=== PATIENT | female | born 1975 | race Caucasian/White ===

== ENCOUNTER 2020-11-28 14:05 | Inpatient (IN) | payer BC ==
[~2020-11-28] VITALS: Ht 177.8 cm; Wt 91.8 kg
[2020-11-28 14:14] VITALS: BP 117/66
[2020-11-28] MEDS ORDERED: PROPRANOLOL 1010 MG PO (14:20)
[2020-11-28] MEDS ORDERED: PROTONIX40 M2 PO (14:21)
[2020-11-28] MEDS ORDERED: LASIX 40 MG TAB40 MG PO (14:21)
[2020-11-28] MEDS ORDERED: K-DUR 20 MEQ T20 MEQ PO (14:22)
[2020-11-28 14:30] LABS: BE -0.2 mmol/L (-2 to +3); PCO2 29.2 mmHg (35.0-45.0); pH 7.499 (7.340-7.450)
[2020-11-28 14:42] LABS: HEMATOCRIT 31.5 % (37.0-47.0); HEMOGLOBIN 10.3 gm/dL (12.0-15.0); MCHC 32.6 g/dL (28.0-37.0); MCV 73.8 fL (80.0-100.0); MPV 8.4 fl. (7.2-11.1); NUCLEATED RBCS 0 /100WBC; PLATELET COUNT* 139 thou/uL (150-400); RBC 4.27 mil/uL (4.20-5.00); RDW-CV 17.4 % (10.5-14.5); WBC 4.2 thou/uL (4.0-11.0)
[2020-11-28 14:49] LABS: PO2 57.8 mmHg (75.0-100.0)
[2020-11-28 14:54] LABS: CALCIUM 8.6 mg/dL (8.5-10.1); CREATININE 0.9 mg/dL (0.6-1.3); POTASSIUM 3.6 mmol/L (3.5-5.1)
[2020-11-28 14:57] LABS: INR 1.1; PROTIME 11.3 Seconds (9.20-11.50)
[2020-11-28 15:04] LABS: ALBUMIN 2.8 g/dL (3.4-5.0); MAGNESIUM 1.8 mg/dL (1.8-2.4); TOTAL BILIRUBIN 0.5 mg/dL (<0.1-1.0); TOTAL PROTEIN 7.2 g/dL (6.4-8.2)
[2020-11-28 15:20] LABS: ABSOLUTE LYMPHOCYTES 0.2 thou/uL (0.8-5.3); ABSOLUTE MONOCYTES 0.4 thou/uL (0.0-1.2); ABSOLUTE NEUTROPHILS 3.7 thou/uL (1.6-8.1); PLATELET ESTIMATE ADEQUATE
--- NOTE | 2020-11-28 15:39 | NUR ---
CANDI CESAR TRIED TO DO EKG PER ER ORDER AND DR DAVISON STATES TO GET OUT OF ROOM NOT RIGHT NOW. UNABLE TO DO EKG ORDER. DR HOWELL WAS NOTIFIED. NO NEW ORDERS RIGHT NOW. WILL ATTEMPT TO DO EKG AT A LATER TIME. SITUATION HAPPENED AT 1440
--- NOTE | 2020-11-28 16:06 | NUR ---
ATTEMPTED 2 IV STARTS BUT UNSUCCESSFUL, PT TOLERATED WELL
[2020-11-28 21:30] VITALS: BP 111/70
[2020-11-28 23:34] VITALS: BP 122/63
[2020-11-29] VITALS (23 sets, daily range): BP systolic 98–133; BP diastolic 58–82
--- NOTE | 2020-11-29 11:48 | NUR ---
cm lft for yinka gonzaleshael, . also tried pt phone number (in case was cell phone on pt's posession). per care team, pt is on bipap, at max setting. mid line placed. receiving covid therapies.
--- NOTE | 2020-11-29 14:24 | EKG ---
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 : 1975 Requested By: Bertrand Coles Order Number: [id number] MD: Wilbur Blanco Measurements Intervals [place] Rate: 105 P: 50 UT: 117 QRS: 35 QRSD: 91 T: 269 QT: 282 QTc: 373 Interpretive Statements Sinus tachycardia Abnormal R-wave progression, early transition Nonspecific T abnormalities, diffuse leads ischemia must be considered No previous ECG available for comparison Electronically Signed On 11-29-2020 14:24:09 CDT by Wilbur Blanco [email or web address] <ELECTRONICALLY SIGNED> By: Wilbur Blanco MD, [facility] 11/29/20 1424 1454 1454 Wilbur Blanco MD, [facility] /EPI
--- NOTE | 2020-11-29 18:37 | NUR ---
Pt remained stable this shift. This am Dr Smith rounded and wanted to put pt on HHFNC to see if she could tolerate it. RT placed it on and pt sat's would not maintain any higher than 86. Pt placed back on bipap. Pt educated on drinking fluids and taking pills while on the bipap by RN and RT. Pt understanding and following directions appropriately. Pt up ad isaiah to bsc as long as bipap is on. Good output and input this shift. Pt is on menses. No other complaints at this time. Will continue to monitor.
[2020-11-30] VITALS (17 sets, daily range): BP systolic 77–121; BP diastolic 43–84
[2020-11-30 03:56] LABS: HEMATOCRIT 31.8 % (37.0-47.0); HEMOGLOBIN 10.4 gm/dL (12.0-15.0); MCH 24.1 pg (26.0-34.0); MCHC 32.8 g/dL (28.0-37.0); MCV 73.4 fL (80.0-100.0); MPV 9.2 fl. (7.2-11.1); RBC 4.33 mil/uL (4.20-5.00); RDW-CV 17.2 % (10.5-14.5); WBC 6.5 thou/uL (4.0-11.0)
[2020-11-30 04:08] LABS: CALCIUM 8.6 mg/dL (8.5-10.1); CREATININE 0.8 mg/dL (0.6-1.3); POTASSIUM 4.3 mmol/L (3.5-5.1)
--- NOTE | 2020-11-30 12:02 | NUR ---
ICU rounds: Pt keeps taking off bipap, desatting. ?intubation. Covid positive.
--- NOTE | 2020-11-30 14:19 | NUR ---
Pt has been struggling to keep mask on today. Pt was educated about the need to keep it on by Dr. Forrest, RT and this RN. Pt does not want to lay on side, and she complains about dry mouth and keeps breaking the seal of mask to swab mouth with moisturizer. Pt up in chair at this time, bipap on, O2 sats range from 86-90. Will continue to closely monitor.
[2020-11-30 17:40] LABS: CALCIUM 8.4 mg/dL (8.5-10.1); CREATININE 0.8 mg/dL (0.6-1.3); MAGNESIUM 2.5 mg/dL (1.8-2.4)
--- NOTE | 2020-11-30 19:35 | CON ---
[address] [address] CONSULTATION Name: ADILSON BRITO Room: [address] IN M.R.#: [id number] Admission: 11/28/20 Attend Phys: Galina Smith MD Discharge: Date of : 75 Report #: [id number] THIS REPORT FOR: cc: FAM - No family physician/PCP FAM - No family physician/PCP Chacorta Loredo MD ~ DOC #: [id number] Chacorta Loredo MD DATE OF CONSULTATION: 11/30/2020 CONSULT REQUESTED BY: Dr. Forrest. REASON FOR CONSULTATION: Acute hypoxemic respiratory failure secondary to COVID-19. HISTORY OF PRESENT ILLNESS: This is a 45-year-old female with past medical history as mentioned below. She does have obesity, body mass index is 34. She currently vapes tobacco. It is not fully clear as to whether she smoked in the past. The patient is reported to have been diagnosed with COVID-19 two weeks ago, presented with increasing shortness of breath, cough and generalized fatigue. The patient was requiring a nonrebreather mask to maintain O2 saturation of 93% on arrival. The patient since then has been on and off on heated high-flow nasal cannula as well as BiPAP, currently is on a BiPAP of 14/8. When she is wearing the BiPAP and is not anxious, we have O2 saturations in the high 90s. The patient at times is getting agitated and taken off the BiPAP and desaturating though. The patient is maintaining normal blood pressure and heart rate. The patient was unable to provide a further history of review of systems. PAST MEDICAL HISTORY: Obesity, body mass index is 34. Fluid overload, etiology not known at this time, on Lasix senior living SOCIAL HISTORY: Vapes tobacco. Unknown whether she smoked in the past. No known history of heavy alcohol use or illegal drug use. FAMILY HISTORY: Mother had WPW. ALLERGIES: SHE HAS HAD AN ADVERSE REACTION OR ALLERGY TO METHYLPHENIDATE. MEDICATIONS: List in [facility] reviewed. PHYSICAL EXAMINATION: GENERAL: She is fully awake, unable to provide any meaningful history. She was resting comfortably on BiPAP, but is quickly agitated [place] [address] CONSULTATION Name: ADILSON BRITO Slime Room: [address] IN [facility]#: [id number] Admission: 11/28/20 Attend Phys: Galina Smith MD Discharge: Date of : 75 Report #: [id number] with her. VITAL SIGNS: Pulse of 85, blood pressure of 128/89, tidal volumes around 600-700 with current BiPAP settings with 100% FiO2, BiPAP at 14/8, saturating in the high 90s, the respiratory rate was in the low 20s. Body mass index 34. HEENT: Normocephalic and atraumatic. Pupils are equal and reactive, appears to have a narrow airway. Moist mucous membranes. NECK: Does not show raised JVP asymmetry, mass or lymph nodes. CHEST: Symmetrical expansion on inspection and palpation. On auscultation, breath sounds are bilaterally equal, but decreased. I do not hear any added sounds. HEART: Regular. There is no murmur. ABDOMEN: Soft and nontender. EXTREMITIES: Lower extremities show trace edema. No calf tenderness. SKIN: Dry and intact. NEUROLOGIC: Moves all extremities bilaterally equally and spontaneously with no focal deficit identified. LABORATORY DATA: The patient's chest x-ray performed 2 days ago shows extensive bilateral infiltrates consistent with ARDS secondary to COVID-19. The patient's lab work is in [facility] and this is reviewed. Initial arterial blood gas is consistent with acute type 1 respiratory failure. COVID-19 antigen was negative. PCR is positive. ASSESSMENT AND PLAN: 1. Acute hypoxemic respiratory failure. At this time, I decided to watch her on BiPAP and she is awake and calm, and is able to take off the BiPAP and maintain O2 saturation on heated high-flow nasal cannula. We will place her on a heated high-flow while awake. If her anxiety persists, then I would go ahead and start her on a Precedex infusion. She may require endotracheal intubation if she worsens. However, I decided to watch closely and hold off on endotracheal intubation for now. 2. COVID-19. She is on dexamethasone, we will continue. She vapes tobacco. May have a component of bronchospasm as well. I did not, for now, increased the schedule dose of dexamethasone, but I will go ahead and give her 10 mg additional now. She received Actemra yesterday. She also is on remdesivir and she received 1 unit of convalescent plasma. I do not feel strongly either way regarding giving her or holding off on the second unit of convalescent plasma. I did not order for now, but will watch this very closely. 3. Fluid overload. We will go ahead and give her Lasix. I ordered repeat labs for 5:00 p.m. today. 4. Evaluation for thromboembolic phenomena. We will also check a D-dimer. If elevated, we will investigate further. 5. Suspected obstructive sleep apnea, on BiPAP as above. 6. Possibility of COPD/bronchospasm. In addition to Decadron as above, also is [address] [place] [address] CONSULTATION Name: DARYLADILSON Palencia Room: [address] IN ..#: [id number] Admission: 11/28/20 Attend Phys: Galina Smith MD Discharge: Date of : 75 Report #: [id number] on DuoNebs. We will continue the same. 7. Deep venous thrombosis prophylaxis, on Lovenox. 8. Clostridium difficile prophylaxis. If she is able to, then we will give her a probiotic orally. 9. The patient is critically ill at this time. Total time spent providing critical care to this patient today exceeds 43 minutes. Chacorta Loredo MD AP/EDITH <ELECTRONICALLY SIGNED> By: Chacorta Loredo MD 11/30/20 1935 1110 1223Ajohn Loredo MD /nt
--- NOTE | 2020-11-30 19:38 | NUR ---
PT SEDATED AND INTUBATED THIS SHIFT. VITALS VERY STABLE. CENTRAL LINE AND ART LINE BEING PLACED AT THIS TIME. REPORT GIVEN TO SHEA.
[2020-11-30 21:28] LABS: BE 4.1 mmol/L (-2 to +3); PCO2 44.5 mmHg (35.0-45.0)
[2020-12-01] VITALS (47 sets, daily range): BP systolic 85–1219; BP diastolic 47–82
[2020-12-01 05:38] LABS: ABSOLUTE LYMPHOCYTES 0.1 thou/uL (0.8-5.3); ABSOLUTE MONOCYTES 0.3 thou/uL (0.0-1.2); ABSOLUTE NEUTROPHILS 6.4 thou/uL (1.6-8.1); BASOPHILS 0.1 %; LYMPHOCYTES 1.5 %; MCHC 32.4 g/dL (28.0-37.0); MONOCYTES 4.4 %; NUCLEATED RBCS 0 /100WBC; PLATELET COUNT* 131 thou/uL (150-400); RBC 4.19 mil/uL (4.20-5.00); RDW-CV 17.8 % (10.5-14.5); WBC 6.8 thou/uL (4.0-11.0)
[2020-12-01 05:46] LABS: ALBUMIN 2.7 g/dL (3.4-5.0); CALCIUM 8.6 mg/dL (8.5-10.1); CREATININE 0.8 mg/dL (0.6-1.3); MAGNESIUM 2.4 mg/dL (1.8-2.4); POTASSIUM 4.3 mmol/L (3.5-5.1); TOTAL BILIRUBIN 0.5 mg/dL (<0.1-1.0); TOTAL PROTEIN 6.7 g/dL (6.4-8.2)
[2020-12-01 05:47] LABS: PHOSPHORUS* 4.9 mg/dL (2.5-4.9)
--- NOTE | 2020-12-01 06:52 | NUR ---
ASSUMED PATIENT CARE AT 1900. ASSESSMENTS COMPLETED CHARTED. CARDIAC MONITORING IN PLACE FOR PATIENT SAFETY. ARTERIAL LINE AND CENTRAL LINE PLACED PER DR. DOYLE ORDERS, SEE ORDERS IN ELECTRONIC CHART FOR DETAILS. PER DR. DOYLE CENTRAL LINE WAS NOT USED OVER NIGHT, AWAITING FURTHER VERIFICATION OF PLACEMENT. PATIENT SEDATION TITRATED TO MAINTAIN MAP OF 65 AND GREATER, SEE CHARTING FOR DETAILS. LEVOPHED DRIP STARTED PER DR. DOYLE'S ORDERS TO MAINTAIN MAP OF 65 OR GREATER. HOURLY ROUNDING IN PLACE FOR PATIENT SAFETY. FALL PRECAUTIONS IN PLACE FOR PATIENT SAFETY. BED LOCKED AND IN LOWEST POSITION.
[2020-12-01 09:15] LABS: BE 1.5 mmol/L (-2 to +3); PCO2 37.2 mmHg (35.0-45.0); pH 7.451 (7.340-7.450)
[2020-12-01 09:16] LABS: PO2 57.5 mmHg (75.0-100.0)
--- NOTE | 2020-12-01 09:32 | NUR ---
ASSESSMENT: CM S/W PT'S MOTHER, AGNIESZKA. PT LIVES WITH EX-, THEY MOVED IN TOGETHER D/T COVID, "TO COMBINED RESOURCES...AND IT'S BETTER FOR THE CHILDREN." PT IS NORMALLY ACTIVE, EMPLOYEED, DRIVES A VEHICLE AND INDEPENDENT W/CARES. PT HAS 0 DMES. PT HAS NO HX WITH SNF/HH. PER CARE TEAM: PT INTUBATED YEST, "THERE ARE NO PLANS TO EXTUBATE OVER THE WEEKEND"/BEDSIDE RN. PT RECIEVED PLASMA LAST NIGHT AND CONT ON COVID THERAPIES.
[2020-12-01 11:12] LABS: PCO2 VENOUS 50.2 mmHg (41.0-51.0); PO2 VENOUS 78.8 mmHg (35.0-45.0)
[2020-12-01 11:37] LABS: BE 3.7 mmol/L (-2 to +3); PCO2 43.6 mmHg (35.0-45.0); PO2 65.3 mmHg (75.0-100.0); pH 7.432 (7.340-7.450)
--- NOTE | 2020-12-01 15:14 | NUR ---
RIGHT BASILIC VESSEL ACCESSED FOR 5 GERMAN TRIPLE PICC. LINE PRE-TRIMMED TO 41CM AND ADVANCED TO THE ZERO CORI WITH NO RESISTANCE MET. UPPER ARM CIRCUMFERENCE ABOVE INSERTION SITE= 14". SHERLOCK MAGNET AND 3CG CONFIRMATION OF TIP TERMINATION AT THE CAVOATRIAL JUNCTION APPRECIATED. GUIDEWIRE REMOVED, LINE FLUSHED AND INERTION SITE DRESSED. REPORT GIVEN TO ARNOLD KNIGHT.
--- NOTE | 2020-12-01 16:21 | 2DMMODE ---
[place] [address] 2 D/M-MODE ECHOCARDIOGRAM Name: ADILSON BRITO Room: [address] IN .R.#: [id number] Admission: 11/28/20 Attend Phys: Galina Smith MD Discharge: Date of : 75 Date of Service: 12/01/20 1620 Report #: [id number] THIS REPORT FOR: cc: FAM - No family physician/PCP FAM - No family physician/PCP Wilbur Blanco MD [facility] ~ APPROVED REPORT Study performed: 12/01/2020 13:54:21 EXAM: Comprehensive 2D, Doppler, and color-flow Echocardiogram BSA: 2.25 HR: 80 bpm BP: 112/59 mmHg Other Information Study Quality: Technically Difficult Technically limited study due to patient on ventilator, inability to position patient. Indications Dyspnea 2D Dimensions IVSd: 12.81 (7-11mm) LVDd: 34.48 mm PWd: 10.76 (7-11mm) LVDs: 24.67 (25-40mm) Aortic Root: 21.88 mm Aortic Valve AoV Peak Marcello.: 1.14 m/s AO Peak Gr.: 5.21 mmHg LVOT Max P.63 mmHg AO Mean Gr.: 2.15 mmHg LVOT Mean P.34 mmHg LVOT Max V: 0.81 m/s AO V2 VTI: 17.00 cm LVOT Mean V: 0.53 m/s LVOT V1 VTI: 21.28 cm Mitral Valve E/A Ratio: 1.11 MV Decel. Time: 451.68 ms MV E Max Marcello.: 0.44 m/s MV PHT: 130.99 [place] [address] 2 D/M-MODE ECHOCARDIOGRAM Name: ADILSON BRITO Room: [address]#: [id number] Admission: 11/28/20 Attend Phys: Galina Smith MD Discharge: Date of : 75 Date of Service: 12/01/20 1620 Report #: [id number] MVA (PHT): 1.68 cm2 TDI E/Lateral E': 8.80 E/Medial E': 6.29 Medial E' Marcello.: 0.07 m/s Lateral E' Marcello.: 0.05 m/s Tricuspid Valve RAP Estimate: 10.00 mmHg TR Peak Gr.: 36.75 mmHg RVSP: 46.75 mmHg PA Pressure: 46.75 mmHg Left Ventricle The left ventricle is normal size. There is normal LV segmental wall motion. There is normal left ventricular wall thickness. Left ventricular systolic function is normal. The left ventricular ejection fraction is within the normal range. LVEF is 60-65%. Grade I - abnormal relaxation pattern. Right Ventricle The right ventricle is normal size. The right ventricular systolic function is normal. Atria The left atrium size is normal. The right atrium size is normal. Aortic Valve Aortic valve is not well visualized. No aortic regurgitation is present. There is no aortic valvular stenosis. Mitral Valve The mitral valve is normal in structure. There is no mitral valve regurgitation noted. No evidence of mitral valve stenosis. Tricuspid Valve The tricuspid valve is normal in structure. Trace tricuspid regurgitation. Pulmonic Valve Pulmonic valve is not well visualized. There is no pulmonic valvular regurgitation. Great Vessels The aortic root is normal in size. IVC is normal in size and collapses >50% [place] [address] 2 D/M-MODE ECHOCARDIOGRAM Name: ADILSON BRITO Room: [address] IN [facility]#: [id number] Admission: 11/28/20 Attend Phys: Galina Smith MD Discharge: Date of : 75 Date of Service: 12/01/20 1620 Report #: [id number] Pericardium There is no pericardial effusion. <Conclusion> The left ventricle is normal size. Left ventricular systolic function is normal. The left ventricular ejection fraction is within the normal range. LVEF is 60-65%. Grade I - abnormal relaxation pattern. The right ventricle is normal size. The left atrium size is normal. The right atrium size is normal. Aortic valve is not well visualized. The mitral valve is normal in structure. The tricuspid valve is normal in structure. IVC is normal in size and collapses >50% with inspiration. There is no pericardial effusion. There is normal LV segmental wall motion. <ELECTRONICALLY SIGNED> By: Wilbur Blanco MD, FACC 12/01/20 162 162 19 Wilbur Blanco MD, FACC /INF
--- NOTE | 2020-12-01 17:43 | NUR ---
vent settings changed throughout the day. the PEEP is now at 10, down from 15. however, the pts FiO2 requirements have increased as the PEEP has decreased. currently on FiO2 of 85%. the pt arouses easily, however, she desats quickly when awake. sats are 92% when sedated and mid to low 70s when awake. pts CVC, left IJ was removed d/t inability to confirm placement. general sx removed the line and held pressure [id number]. PICC/DANCE HALL HOSTESSPedro, placed a PICC line per Dr. Loredo order. RUE PICC, triple lumen. placement confirmed with CXR. pt has difficulty tolerating turns, she will desat with rotation. pt seems to do better when lying on her right side. all other VSS, levo gtt has been on hold since approx. 0900 today.
[2020-12-01 21:00] LABS: BE 5.2 mmol/L (-2 to +3); PO2 80.9 mmHg (75.0-100.0); pH 7.471 (7.340-7.450)
[2020-12-02] VITALS (42 sets, daily range): BP systolic 73–173; BP diastolic 40–94
[2020-12-02 05:45] LABS: ABSOLUTE BASOPHILS 0.1 thou/uL (0.0-0.2); ABSOLUTE LYMPHOCYTES 0.1 thou/uL (0.8-5.3); ABSOLUTE MONOCYTES 0.5 thou/uL (0.0-1.2); ABSOLUTE NEUTROPHILS 9.6 thou/uL (1.6-8.1); BASOPHILS 0.6 %; HEMATOCRIT 29.8 % (37.0-47.0); HEMOGLOBIN 9.6 gm/dL (12.0-15.0); LYMPHOCYTES 1.2 %; MCH 24.1 pg (26.0-34.0); MCHC 32.4 g/dL (28.0-37.0); MCV 74.6 fL (80.0-100.0); MONOCYTES 4.5 %; MPV 8.4 fl. (7.2-11.1); NUCLEATED RBCS 0 /100WBC; PLATELET COUNT* 142 thou/uL (150-400); POLYS 93.7 %; RBC 3.99 mil/uL (4.20-5.00); RDW-CV 17.1 % (10.5-14.5); WBC 10.2 thou/uL (4.0-11.0)
[2020-12-02 05:57] LABS: ALBUMIN 2.8 g/dL (3.4-5.0); CALCIUM 8.5 mg/dL (8.5-10.1); MAGNESIUM 2.7 mg/dL (1.8-2.4); POTASSIUM 4.4 mmol/L (3.5-5.1); TOTAL BILIRUBIN 0.6 mg/dL (<0.1-1.0); TOTAL PROTEIN 6.7 g/dL (6.4-8.2)
[2020-12-02 06:15] LABS: PHOSPHORUS* 4.8 mg/dL (2.5-4.9)
[2020-12-02 07:38] LABS: BE 6.8 mmol/L (-2 to +3); PO2 67.5 mmHg (75.0-100.0)
--- NOTE | 2020-12-02 07:49 | NUR ---
ASSUMED PATIENT CARE AT 1900. ASSESSMENTS COMPLETED CHARTED. CARDIAC MONITORING IN PLACE. HOURLY ROUNDING IN PLACE FOR PATIENT SAFETY. FALL PRECAUTIONS IN PLACE FOR PATIENT SAFETY. BED LOCKED AND IN LOWEST POSITION. BED ALARM ON.
--- NOTE | 2020-12-02 17:54 | NUR ---
PT O2 REQUIREMENTS CONTINUE TO INCREASE THROUGHOUT THE DAY. DR. DOYLE ORDERED TO PRONE THE PT FOR 12 HOURS AND THEN SUPINE FOR 12 HOURS STARTING AT 1800 ONCE TUBE FEEDS HAVE BEEN HELP AT LEAST 2 HOURS. STOMACH HAS BEEN EMPTIED. FAMILY HAS BEEN UPDATED SEVERAL TIMES TODAY. VS REMAIN STABLE.
[2020-12-02 18:17] LABS: CALCIUM 8.2 mg/dL (8.5-10.1); MAGNESIUM 2.6 mg/dL (1.8-2.4)
[2020-12-03] VITALS (58 sets, daily range): BP systolic 106–182; BP diastolic 52–75
[2020-12-03 06:22] LABS: HEMOGLOBIN 8.8 gm/dL (12.0-15.0); MCH 24.3 pg (26.0-34.0); MCHC 32.4 g/dL (28.0-37.0); MCV 74.8 fL (80.0-100.0); MPV 8.4 fl. (7.2-11.1); NUCLEATED RBCS 0 /100WBC; PLATELET COUNT* 112 thou/uL (150-400); RBC 3.61 mil/uL (4.20-5.00); RDW-CV 17.2 % (10.5-14.5); WBC 7.6 thou/uL (4.0-11.0)
[2020-12-03 06:39] LABS: ALBUMIN 3.1 g/dL (3.4-5.0); CALCIUM 8.4 mg/dL (8.5-10.1); CREATININE 0.8 mg/dL (0.6-1.3); MAGNESIUM 2.9 mg/dL (1.8-2.4); POTASSIUM 4.1 mmol/L (3.5-5.1); TOTAL BILIRUBIN 0.8 mg/dL (<0.1-1.0); TOTAL PROTEIN 6.4 g/dL (6.4-8.2)
--- NOTE | 2020-12-03 07:20 | NUR ---
ASSUMED PATIENT CARE AT 1900. ASSESSMENTS COMPLETED CHARTED. CARDIAC MONITORING IN PLACE. PATIENT UN-PRONED AND RETURNED TO SUPINE POSITION AT 0600. HOURLY ROUNDING IN PLACE FOR PATIENT SAFETY. FALL PRECAUTIONS IN PLACE FOR PATIENT SAFETY. BED LOCKED AND IN LOWEST POSITION. BED ALARM ON.
[2020-12-03 07:51] LABS: BE 3.7 mmol/L (-2 to +3); PCO2 44.7 mmHg (35.0-45.0); pH 7.424 (7.340-7.450)
[2020-12-03 08:00] LABS: ABSOLUTE LYMPHOCYTES 0.2 thou/uL (0.8-5.3); ABSOLUTE MONOCYTES 0.3 thou/uL (0.0-1.2); ABSOLUTE NEUTROPHILS 7.1 thou/uL (1.6-8.1); PLATELET ESTIMATE DECREASED
[2020-12-03 08:01] LABS: HYPOCHROMASIA 1+; MICROCYTES 1+
[2020-12-03 08:02] LABS: ANISOCYTOSIS 1+; OVALOCYTES 1+; POIKILOCYTOSIS 1+; POLYCHROMASIA Occasional
[2020-12-03 15:30] LABS: BE 9.2 mmol/L (-2 to +3); PCO2 45.4 mmHg (35.0-45.0); PO2 62.2 mmHg (75.0-100.0); pH 7.488 (7.340-7.450)
--- NOTE | 2020-12-03 18:31 | NUR ---
PT HAS FREQUENT COUGHING SPELLS WITH HEMOPTIC SECRETIONS, VERSED MAXED TO 15 MG/HR. PROPOFOL AT 20, PLAN TO DC IF TOLERATED. HAD TO GO UP ON FIO2 PT DESATTING TO MID 80s. PRONED AT 1800 PER ORDERS, TUBE FEEDS ON HOLD CURRENTLY. UPDATED BROTHER OVER THE PHONE.
[2020-12-04] VITALS (22 sets, daily range): BP systolic 86–144; BP diastolic 53–93
[2020-12-04 05:41] LABS: ABSOLUTE BASOPHILS 0.2 thou/uL (0.0-0.2); ABSOLUTE LYMPHOCYTES 0.1 thou/uL (0.8-5.3); ABSOLUTE MONOCYTES 0.5 thou/uL (0.0-1.2); ABSOLUTE NEUTROPHILS 13.8 thou/uL (1.6-8.1); BASOPHILS 1.2 %; HEMOGLOBIN 9.9 gm/dL (12.0-15.0); MONOCYTES 3.3 %; MPV 8.7 fl. (7.2-11.1); NUCLEATED RBCS 0 /100WBC; PLATELET COUNT* 125 thou/uL (150-400); POLYS 94.5 %; RBC 4.13 mil/uL (4.20-5.00); RDW-CV 17.3 % (10.5-14.5); WBC 14.6 thou/uL (4.0-11.0)
[2020-12-04 05:59] LABS: PHOSPHORUS* 4.9 mg/dL (2.5-4.9)
[2020-12-04 06:01] LABS: ALBUMIN 3.3 g/dL (3.4-5.0); CALCIUM 8.5 mg/dL (8.5-10.1); CREATININE 0.8 mg/dL (0.6-1.3); MAGNESIUM 2.6 mg/dL (1.8-2.4); POTASSIUM 4.1 mmol/L (3.5-5.1); TOTAL PROTEIN 6.6 g/dL (6.4-8.2)
--- NOTE | 2020-12-04 07:39 | NUR ---
ASSUMED PATIENT CARE AT 1900. ASSESSMENTS COMPLETED CHARTED. CARDIAC MONITORING IN PLACE. NO BM THIS SHIFT. PATIENT UN-PRONED AROUND 0600. HOURLY ROUNDING IN PLACE FOR PATIENT SAFETY. FALL PRECAUTIONS IN PLACE FOR PATIENT SAFETY. BED LOCKED AND IN LOWEST POSITION.
[2020-12-04 08:27] LABS: BE 8.1 mmol/L (-2 to +3); PCO2 48.7 mmHg (35.0-45.0); PO2 80.7 mmHg (75.0-100.0); pH 7.451 (7.340-7.450)
[2020-12-04 13:40] LABS: BE 10.1 mmol/L (-2 to +3); PO2 77.5 mmHg (75.0-100.0); pH 7.304 (7.340-7.450)
[2020-12-04 13:43] LABS: PCO2 81.1 mmHg (35.0-45.0)
--- NOTE | 2020-12-04 13:46 | NUR ---
PLAN OF CARE: PT REMAINS ICU STATUS. PT COVID POSITIVE AND REMAINS ON THE VENT. CM WILL REMAIN AVAILABLE TO ASSIST AND FOLLOW NEEDED.
[2020-12-04 15:00] LABS: BE 7.7 mmol/L (-2 to +3); PO2 75.8 mmHg (75.0-100.0); pH 7.413 (7.340-7.450)
[2020-12-04 15:02] LABS: PCO2 53.9 mmHg (35.0-45.0)
[2020-12-04 18:43] LABS: ANION GAP < 0 mmol/L (7-16); BUN 34 mg/dL (7-18); CALCIUM 8.1 mg/dL (8.5-10.1); CHLORIDE 102 mmol/L (98-107); CO2 39 mmol/L (21-32); CREATININE 0.9 mg/dL (0.6-1.3); GLUCOSE 168 mg/dL (70-99); MAGNESIUM 2.8 mg/dL (1.8-2.4); POTASSIUM 4.1 mmol/L (3.5-5.1); SODIUM 140 mmol/L (136-145)
--- NOTE | 2020-12-04 18:52 | NUR ---
this press writer assumed care of pt at 0700 assessment as charted. pt was unable to maintain sats during shift dr leal changed vent setting and added sedation pt sats have been 91-94% tolerating well and looks comfortable bp maintaining at this time but a bag of vira in frigde if map falls below 65% meds titrated per dr leal family updated throughout shift tubefeeding changed to 2cal with a goal of 35 tolerating well family updated throughout shift
[2020-12-04 18:56] LABS: ALBUMIN 3.2 g/dL (3.4-5.0); DIRECT BILIRUBIN 0.3 mg/dL (<0.1-0.3); TOTAL BILIRUBIN 0.9 mg/dL (<0.1-1.0); TOTAL PROTEIN 6.4 g/dL (6.4-8.2)
[2020-12-04 21:27] LABS: BE 8.9 mmol/L (-2 to +3); PO2 70.7 mmHg (75.0-100.0); pH 7.439 (7.340-7.450)
[2020-12-04 21:30] LABS: PCO2 51.9 mmHg (35.0-45.0)
[2020-12-05] VITALS (35 sets, daily range): BP systolic 95–134; BP diastolic 51–76
[2020-12-05 02:07] LABS: MYCOPLASMA PNEUMONIA IgG 1132 U/mL (0-99); MYCOPLASMA PNEUMONIA IgM <770 U/mL (0-769)
--- NOTE | 2020-12-05 04:17 | NUR ---
ASSUMED CARE AT 1900H, ON VENT PC MODE AT 100%. SEDATED WITH FENTANYL AT 200MICS AND VERSED 15MG. PT TAKING LOTS OF BREATH, PROPOFOL RESTARTED FOR AWHILE. PC INCREASED TO 18. PULMO CALLED WITH ORDERS MADE AND CARRIED OUT. PRECEDEX DRIP AND DILAUDED STARTED AND PROPOFOL AND FENTANYL STOPED. UPDATE GIVEN TO FAMILY AND REQUESTING UPDATES FROM DOCTORS TODAY MORNING. NO FEVER NOTED. CONTINUE MONITORING AND TOWARDS GOALS. VERSED AT 15MG/HR, DILAUDED AT 3MG/HR AND PRECEDEX AT 1.2MICS. PT TAKES OCCASIONAL SMALL BREATH. CUFF LEAKAGE PER RT. TO PRONE PT AT 0700H.
[2020-12-05 10:40] LABS: BE 5.3 mmol/L (-2 to +3); PO2 67.4 mmHg (75.0-100.0); pH 7.339 (7.340-7.450)
[2020-12-05 10:43] LABS: PCO2 61.8 mmHg (35.0-45.0)
[2020-12-05 10:53] LABS: ABSOLUTE LYMPHOCYTES 0.1 thou/uL (0.8-5.3); ABSOLUTE MONOCYTES 0.5 thou/uL (0.0-1.2); BASOPHILS 0.3 %; HEMATOCRIT 31.8 % (37.0-47.0); HEMOGLOBIN 10.1 gm/dL (12.0-15.0); LYMPHOCYTES 0.8 %; MCH 24.2 pg (26.0-34.0); MCHC 31.7 g/dL (28.0-37.0); MCV 76.3 fL (80.0-100.0); MONOCYTES 4.3 %; MPV 8.1 fl. (7.2-11.1); NUCLEATED RBCS 0 /100WBC; PLATELET COUNT* 108 thou/uL (150-400); POLYS 94.6 %; RBC 4.17 mil/uL (4.20-5.00); RDW-CV 17.5 % (10.5-14.5); WBC 12.6 thou/uL (4.0-11.0)
[2020-12-05 10:56] LABS: CALCIUM 7.8 mg/dL (8.5-10.1); CREATININE 0.8 mg/dL (0.6-1.3); POTASSIUM 4.6 mmol/L (3.5-5.1)
[2020-12-05 11:01] LABS: ALBUMIN 3.1 g/dL (3.4-5.0); MAGNESIUM 2.9 mg/dL (1.8-2.4); TOTAL BILIRUBIN 0.7 mg/dL (<0.1-1.0); TOTAL PROTEIN 6.5 g/dL (6.4-8.2)
--- NOTE | 2020-12-05 11:39 | 2DMMODE ---
[place] [address] 2 D/M-MODE ECHOCARDIOGRAM Name: BRITOADILSON Room: [address] IN [facility]#: [id number] Admission: 11/28/20 Attend Phys: Galina Smith MD Discharge: Date of : 75 Date of Service: 12/05/20 1139 Report #: [id number] THIS REPORT FOR: cc: FAM - No family physician/PCP FAM - No family physician/PCP Romero Crockett MD [facility] ~ APPROVED REPORT Study performed: 12/05/2020 09:45:27 EXAM: Limited 2D Echocardiogram Patient Location: In-Patient Room #: 206 BSA: 2.13 HR: 123 bpm BP: 117/70 mmHg Rhythm: Tachycardia Other Information Study Quality: Adequate Indications Abnormal ECG Dyspnea COVID Tricuspid Valve RAP Estimate: 5.00 mmHg TR Peak Gr.: 24.14 mmHg RVSP: 29.00 mmHg PA Pressure: 29.00 mmHg Left Ventricle The left ventricle is normal size. There is normal LV segmental wall motion. There is normal left ventricular wall thickness. The left ventricular systolic function is normal. The left ventricular ejection fraction is within the normal range. LVEF is 65%. Right Ventricle The right ventricle is normal size. The right ventricular systolic function is normal. Atria The left atrium size is normal. The right [place] [address] 2 D/M-MODE ECHOCARDIOGRAM Name: ADILSON BRITO Room: [address] IN M.R.#: [id number] Admission: 11/28/20 Attend Phys: Galina Smith MD Discharge: Date of : 75 Date of Service: 12/05/20 1139 Report #: [id number] Aortic Valve The aortic valve is normal in structure. Mitral Valve The mitral valve is normal in structure. Tricuspid Valve The tricuspid valve is normal in structure. Trace tricuspid regurgitation. No pulmonary hypertension. Pulmonic Valve Pulmonic valve is well visualized. Great Vessels The aortic root is normal in size. IVC is normal in size. Pericardium There is no pericardial effusion. <Conclusion> The left ventricular systolic function is normal. The left ventricular ejection fraction is within the normal range. There is no pericardial effusion. <ELECTRONICALLY SIGNED> By: Romero Crockett MD, FACC 12/05/20 1139 38 38 Romero Crockett MD, FACC /INF
[2020-12-05 11:50] LABS: APTT 24.3 Seconds (25.0-31.3); INR 1.2
[2020-12-05 11:55] LABS: CHOLESTEROL 150 mg/dL (<200); HDL CHOLESTEROL 24 mg/dL (>40); LDL CHOLESTEROL 56 mg/dL (<100); SERUM ASSESSMENT Clear; TC:HDL 6.3 Ratio (Not establshd); TRIGLYCERIDE 354 mg/dL (<150); VLDL 71 mg/dL (<40)
[2020-12-05 12:33] LABS: BE 10.2 mmol/L (-2 to +3); PO2 82.1 mmHg (75.0-100.0); pH 7.309 (7.340-7.450)
[2020-12-05 12:35] LABS: PCO2 80.3 mmHg (35.0-45.0)
--- NOTE | 2020-12-05 14:58 | NUR ---
PLAN OF CARE: PT REMAINS ICU STATUS. PT REMAINS ON THE VENT AND 100% FIO2. PHYSICIAN INFORMS OF PT'S FAMILIES PLAN TO DISCUSS PLAN OF CARE AND POSSIBLE CODE STATUS CHANGE TO DNR. CM WILL REMAIN AVAILABLE TO ASSIST AND FOLLOW NEEDED.
[2020-12-05 15:08] LABS: ABSOLUTE BASOPHILS 0.2 thou/uL (0.0-0.2); ABSOLUTE LYMPHOCYTES 0.1 thou/uL (0.8-5.3); ABSOLUTE MONOCYTES 0.4 thou/uL (0.0-1.2); ABSOLUTE NEUTROPHILS 13.8 thou/uL (1.6-8.1); BASOPHILS 1.1 %; HEMATOCRIT 33.6 % (37.0-47.0); HEMOGLOBIN 10.6 gm/dL (12.0-15.0); LYMPHOCYTES 0.6 %; MCH 24.1 pg (26.0-34.0); MCHC 31.7 g/dL (28.0-37.0); MONOCYTES 2.8 %; MPV 8.2 fl. (7.2-11.1); NUCLEATED RBCS 0 /100WBC; PLATELET COUNT* 122 thou/uL (150-400); POLYS 95.5 %; RBC 4.42 mil/uL (4.20-5.00); RDW-CV 17.9 % (10.5-14.5); WBC 14.5 thou/uL (4.0-11.0)
[2020-12-05 15:25] LABS: CALCIUM 7.8 mg/dL (8.5-10.1); CREATININE 0.9 mg/dL (0.6-1.3); MAGNESIUM 2.7 mg/dL (1.8-2.4)
[2020-12-05 15:58] LABS: BE 10.5 mmol/L (-2 to +3); PO2 74.7 mmHg (75.0-100.0)
[2020-12-05 16:04] LABS: PCO2 58.2 mmHg (35.0-45.0)
--- NOTE | 2020-12-05 16:12 | EKG ---
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: : 1975 Requested By: Galina Smith Order Number: [id number] Reading MD: Romero Crockett Measurements Intervals [place] Rate: 120 P: 37 [place]: 58 QRS: 31 QRSD: 100 T: 156 QT: 314 QTc: 444 Interpretive Statements Sinus tachycardia Repol abnrm, severe global ischemia (LM/MVD) Compared to ECG 11/28/2020 14:54:58 Possible ischemia still present Electronically Signed On 12-05-2020 16:12:17 CDT by Romero Crockett [email or web address] <ELECTRONICALLY SIGNED> By: Romero Crockett MD, [facility] 12/05/20 1612 8 8 Romero Crockett MD, [facility] /EPI
--- NOTE | 2020-12-05 20:49 | NUR ---
ASSUMED CARE OF PT 0700. ASSESSMENTS COMPLETED CHARTED. VITALS COMPLETED CHARTED. PT HEMODYNAMICALLY UNSTABLE THIS AM WITH O2 SATS IN MID TO HIGH 80'S ON 100%, HR IN 150'S, EKG CHANGES NOTED, VICKI GUADARRAMA AND VIVEK NOTIFIED. CARDIOLOGY CONSULTED. CHAR FONG BLOOM CONVEYOR OPERATOR AT BEDSIDE DURING THIS TIME WITH VICKI GUADARRAMA AND VIVEK. DR GUADARRAMA SPOKE TO FAMILY AT LOCATED WITHIN [facility]. FAMILY WISHES TO CONTINUE AGGRESSIVE MEASURES. MULTIPLE ORDERS RCVD AND IMPLEMENTED, SEE CHART FOR DETAILS. PT EVENTUALLY STABILIZED, CONTINUES TO BE MONITORED CLOSELY. PT PLACED IN PRONE POSITION AT SHIFT CHANGE.
[2020-12-06] VITALS (46 sets, daily range): BP systolic 89–137; BP diastolic 54–81
--- NOTE | 2020-12-06 00:20 | NUR ---
12/05/201999 PT PRONED, REMAINS HEMODYNAMICALLY STABLE
[2020-12-06 04:11] LABS: HEMATOCRIT 31.8 % (37.0-47.0); HEMOGLOBIN 10.2 gm/dL (12.0-15.0); MCH 24.1 pg (26.0-34.0); MCV 75.2 fL (80.0-100.0); MPV 8.4 fl. (7.2-11.1); NUCLEATED RBCS 0 /100WBC; PLATELET COUNT* 131 thou/uL (150-400); RBC 4.23 mil/uL (4.20-5.00); RDW-CV 17.7 % (10.5-14.5); WBC 14.6 thou/uL (4.0-11.0)
[2020-12-06 04:30] LABS: ALBUMIN 3.1 g/dL (3.4-5.0); CALCIUM 8.1 mg/dL (8.5-10.1); CREATININE 0.9 mg/dL (0.6-1.3); MAGNESIUM 2.9 mg/dL (1.8-2.4); POTASSIUM 4.1 mmol/L (3.5-5.1); TOTAL BILIRUBIN 0.7 mg/dL (<0.1-1.0); TOTAL PROTEIN 6.4 g/dL (6.4-8.2)
[2020-12-06 04:31] LABS: PHOSPHORUS* 4.3 mg/dL (2.5-4.9)
[2020-12-06 06:05] LABS: ABSOLUTE LYMPHOCYTES 0.7 thou/uL (0.8-5.3); ABSOLUTE MONOCYTES 0.1 thou/uL (0.0-1.2); ABSOLUTE NEUTROPHILS 13.7 thou/uL (1.6-8.1); ANISOCYTOSIS 1+; PLATELET ESTIMATE DECREASED; POIKILOCYTOSIS 1+
[2020-12-06 08:25] LABS: BE 8.9 mmol/L (-2 to +3); PCO2 46.3 mmHg (35.0-45.0); PO2 110.9 mmHg (75.0-100.0); pH 7.477 (7.340-7.450)
--- NOTE | 2020-12-06 10:00 | NUR ---
ONGOING ASSESSMENT: CM S/W CARE TEAM. DR GUADARRAMA SPK W/PT FAMILY AT LENGTH YESTERDAY. PT "ALMOST CODED YESTERDAY."/BEDSIDE NURSE. THE PLAN IS TO "UN-PRONE" TODAY. PT CONT ON VENT AND PRECEDEX GTT.
[2020-12-06 13:46] LABS: BE 10.1 mmol/L (-2 to +3); PO2 97.8 mmHg (75.0-100.0); pH 7.422 (7.340-7.450)
--- NOTE | 2020-12-06 15:58 | EKG ---
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: JORDY : 1975 Requested By: Guillermina Santiago Order Number: [id number] Reading MD: Romero Crockett Measurements Intervals [place] Rate: 94 P: 61 IL: 111 QRS: 54 QRSD: 63 T: -27 QT: 320 QTc: 401 Interpretive Statements Sinus rhythm Borderline short IL interval LAE, consider biatrial enlargement Borderline repolarization abnormality Compared to ECG 12/05/2020 09:19:54 Sinus tachycardia no longer present Electronically Signed On 12-06-2020 15:58:21 CDT by Romero Crockett [email or web address] <ELECTRONICALLY SIGNED> By: Romero Crockett MD, [facility] 12/06/20 1558 1344 1344 Romero Crockett MD, [facility] /EPI
--- NOTE | 2020-12-06 17:19 | NUR ---
ASSUMED CARE OF PT 0700. ASSESSMENTS COMPLETED, SEE CHART FOR DETAILS. VITALS CHARTED. VENT, LUI, OG, TUBE FEED, TL PICC, PLATE FITTER, ISOLATION, GTTS (VERSED, DILAUDID, NIMBEX), PER ORDERS. PT IN PRONE POSITION AT START OF SHIFT PER ORDERS, PT PLACED IN SUPINE POSITION APPROX 1000 PER ORDERS. PTS HR INCRESED TO 120'S THROUHGOUT SHIFT WITH ALL CARES (ORAL CARE, BATHING, TURNING, RT TREATMENT, ETC). PTS HR REMAINS IN 120'S UNTIL APPROX 30 MINUTES POST CARE. MORNING AND AFTERNOON UPDATES PROVIDED TO PTS BROTHER ADONIS. WILL CONTINUE TO MONITOR PATIENT CLOSELY.
[2020-12-06 18:03] LABS: BE 7.4 mmol/L (-2 to +3); PO2 103.9 mmHg (75.0-100.0); pH 7.381 (7.340-7.450)
[2020-12-06 18:06] LABS: PCO2 58.7 mmHg (35.0-45.0)
[2020-12-06 18:15] LABS: CALCIUM 8.3 mg/dL (8.5-10.1); CREATININE 0.9 mg/dL (0.6-1.3); MAGNESIUM 2.9 mg/dL (1.8-2.4); POTASSIUM 3.9 mmol/L (3.5-5.1)
[2020-12-07] VITALS (47 sets, daily range): BP systolic 95–136; BP diastolic 56–75
[2020-12-07 03:34] LABS: ABSOLUTE LYMPHOCYTES 0.1 thou/uL (0.8-5.3); ABSOLUTE MONOCYTES 0.5 thou/uL (0.0-1.2); ABSOLUTE NEUTROPHILS 11.5 thou/uL (1.6-8.1); BASOPHILS 0.4 %; HEMATOCRIT 30.2 % (37.0-47.0); HEMOGLOBIN 9.6 gm/dL (12.0-15.0); LYMPHOCYTES 1.2 %; MCH 24.5 pg (26.0-34.0); MCHC 31.8 g/dL (28.0-37.0); MCV 77.2 fL (80.0-100.0); MONOCYTES 4.2 %; MPV 8.6 fl. (7.2-11.1); NUCLEATED RBCS 0 /100WBC; PLATELET COUNT* 123 thou/uL (150-400); POLYS 94.2 %; RBC 3.91 mil/uL (4.20-5.00); WBC 12.2 thou/uL (4.0-11.0)
[2020-12-07 03:48] LABS: ALBUMIN 3.8 g/dL (3.4-5.0); CALCIUM 8.2 mg/dL (8.5-10.1); CREATININE 0.9 mg/dL (0.6-1.3); MAGNESIUM 3.1 mg/dL (1.8-2.4); TOTAL BILIRUBIN 0.8 mg/dL (<0.1-1.0); TOTAL PROTEIN 6.7 g/dL (6.4-8.2)
[2020-12-07 03:54] LABS: PHOSPHORUS* 4.6 mg/dL (2.5-4.9)
--- NOTE | 2020-12-07 07:28 | NUR ---
ASSESSMENTS CHARTED. PATIENT REMAINS INTUBATED AND PARALYZED ON THE VENTILATOR. PATIENT TOLERATING BEING PARALYZED. UPDATED FAMILY OVER THE PHONE LAST NIGHT. Q2H TURNS FOR SKIN INTEGRITY. NO SIGNIFICANT EVENTS OVERNIGHT.
[2020-12-07 08:06] LABS: BE 5.4 mmol/L (-2 to +3); pH 7.379 (7.340-7.450)
[2020-12-07 08:08] LABS: PCO2 54.7 mmHg (35.0-45.0)
--- NOTE | 2020-12-07 09:20 | NUR ---
Icu rounds: Vent, parlytics, dilaudid and versed. 80% FiO2. Peep 10. Full pressure support on vent. TF, continue steroids and abx. Patient remains full code. Pulm and ID consults. Concern for organ system compromise cardiopulmonary. Prognosis is guarded.
[2020-12-07 17:28] LABS: BE 9.1 mmol/L (-2 to +3); PO2 62.4 mmHg (75.0-100.0); pH 7.353 (7.340-7.450)
--- NOTE | 2020-12-07 18:54 | NUR ---
ALL ASSESSMENTS COMPLETED CHARTED. PT UNABLE TO TOLORATE COMING OFF NIMBEX TODAY. TUBE FEEDS CURRENTLY OFF FOR PRONING AT SHIFT CHANGE. Q2 TURNS FOR SKIN INTEGRITY. FALL PRECAUTIONS IN PLACE.
[2020-12-07 19:04] LABS: ANION GAP < 0 mmol/L (7-16); BUN 38 mg/dL (7-18); CALCIUM 8.3 mg/dL (8.5-10.1); CHLORIDE 104 mmol/L (98-107); CO2 40 mmol/L (21-32); CREATININE 0.7 mg/dL (0.6-1.3); GLUCOSE 149 mg/dL (70-99); POTASSIUM 4.1 mmol/L (3.5-5.1); SODIUM 142 mmol/L (136-145)
--- NOTE | 2020-12-07 23:05 | NUR ---
PATIENT PRONED AT 2300
[2020-12-08] VITALS (61 sets, daily range): BP systolic 91–151; BP diastolic 54–80
[2020-12-08 05:09] LABS: ABSOLUTE LYMPHOCYTES 0.2 thou/uL (0.8-5.3); ABSOLUTE MONOCYTES 0.5 thou/uL (0.0-1.2); ABSOLUTE NEUTROPHILS 11.4 thou/uL (1.6-8.1); BASOPHILS 0.1 %; HEMATOCRIT 32.3 % (37.0-47.0); HEMOGLOBIN 10.2 gm/dL (12.0-15.0); LYMPHOCYTES 1.5 %; MCH 24.6 pg (26.0-34.0); MCHC 31.7 g/dL (28.0-37.0); MCV 77.7 fL (80.0-100.0); MONOCYTES 4.4 %; MPV 8.6 fl. (7.2-11.1); NUCLEATED RBCS 0 /100WBC; PLATELET COUNT* 136 thou/uL (150-400); RBC 4.15 mil/uL (4.20-5.00); RDW-CV 17.1 % (10.5-14.5); WBC 12.1 thou/uL (4.0-11.0)
[2020-12-08 05:31] LABS: ALBUMIN 3.7 g/dL (3.4-5.0); CALCIUM 8.4 mg/dL (8.5-10.1); CREATININE 0.7 mg/dL (0.6-1.3); TOTAL BILIRUBIN 0.7 mg/dL (<0.1-1.0); TOTAL PROTEIN 6.7 g/dL (6.4-8.2)
[2020-12-08 07:45] LABS: BE 10.6 mmol/L (-2 to +3)
[2020-12-08 07:47] LABS: PCO2 87.4 mmHg (35.0-45.0)
[2020-12-08 07:48] LABS: PO2 192.4 mmHg (75.0-100.0)
--- NOTE | 2020-12-08 10:02 | NUR ---
ICU rounds: Covid positive. Proned, plan to unprone in an hour. Abg not looking good, pulm following. On nibex, versed and dilaudid.
[2020-12-08 13:35] LABS: BE 12.8 mmol/L (-2 to +3); PO2 84.4 mmHg (75.0-100.0); pH 7.478 (7.340-7.450)
[2020-12-08 13:37] LABS: PCO2 52.7 mmHg (35.0-45.0)
[2020-12-08 15:43] LABS: CALCIUM 8.7 mg/dL (8.5-10.1); CREATININE 0.8 mg/dL (0.6-1.3); POTASSIUM 3.4 mmol/L (3.5-5.1)
--- NOTE | 2020-12-08 18:40 | NUR ---
ALL ASSESSMENTS COMPLETED CHARTED. PATIENT REMAINS INTUBATED AND SEDATED ON NIMBEX; STILL CONTINUING TO PRONE; VENT SETTINGS ADJUSTED ACCORDING TO O2 SATURATION.
[2020-12-09] VITALS (58 sets, daily range): BP systolic 86–179; BP diastolic 50–91
[2020-12-09 06:12] LABS: ABSOLUTE LYMPHOCYTES 0.2 thou/uL (0.8-5.3); MCH 24.6 pg (26.0-34.0); MPV 8.3 fl. (7.2-11.1)
[2020-12-09 06:14] LABS: ABSOLUTE BASOPHILS 0.1 thou/uL (0.0-0.2); ABSOLUTE MONOCYTES 0.7 thou/uL (0.0-1.2); ABSOLUTE NEUTROPHILS 12.3 thou/uL (1.6-8.1); BASOPHILS 0.6 %; HEMATOCRIT 34.4 % (37.0-47.0); LYMPHOCYTES 1.2 %; MCHC 31.9 g/dL (28.0-37.0); MCV 77.1 fL (80.0-100.0); MONOCYTES 5.4 %; NUCLEATED RBCS 0 /100WBC; PLATELET COUNT* 145 thou/uL (150-400); POLYS 92.8 %; RBC 4.46 mil/uL (4.20-5.00); RDW-CV 17.1 % (10.5-14.5); WBC 13.3 thou/uL (4.0-11.0)
[2020-12-09 06:29] LABS: ALBUMIN 3.7 g/dL (3.4-5.0); CALCIUM 8.5 mg/dL (8.5-10.1); CREATININE 0.7 mg/dL (0.6-1.3); MAGNESIUM 2.7 mg/dL (1.8-2.4); PHOSPHORUS* 5.1 mg/dL (2.5-4.9); POTASSIUM 4.6 mmol/L (3.5-5.1); TOTAL BILIRUBIN 0.9 mg/dL (<0.1-1.0); TOTAL PROTEIN 6.8 g/dL (6.4-8.2)
--- NOTE | 2020-12-09 07:22 | NUR ---
PATIENT PRONED AT 2230. ASSESSMENTS CHARTED. PATIENT TACHYCARDIC, RESTARTED PROPOFOL OVERNIGHT. SPOKE WITH DR. PENA FOR ROUNDS THIS AM, NEW ORDERS RECIEVED. WILL BE STOPPING NIMBEX AFTER SHIFT CHANGE. VSS.
[2020-12-09 07:49] LABS: BE 7.5 mmol/L (-2 to +3)
[2020-12-09 07:51] LABS: PCO2 81.3 mmHg (35.0-45.0); PO2 124.1 mmHg (75.0-100.0); pH 7.275 (7.340-7.450)
[2020-12-09 10:17] LABS: BE 12.7 mmol/L (-2 to +3); PCO2 49.6 mmHg (35.0-45.0); PO2 91.2 mmHg (75.0-100.0); pH 7.498 (7.340-7.450)
--- NOTE | 2020-12-09 18:38 | NUR ---
PT WAS PRONE AT CHANGE OF SHIFT THIS AM. TURNED PT SUPINE AT 1030 AM. NO ACUTE EVENTS WHILE TURNING. PT FAMILY ORIGINALLY DID NOT WANT TO STOP NIMBEX IT WAS 'THE ONLY THING KEEPING HER STABLE'. EDUCATED FAMILY AND NOTIFIED DR PENA WITH FAMILY NUMBER FOR HIM TO CALL. DR PENA CALLED PT FAMILY X2 AND MOM INFORMED THIS RN THAT HER PHONE AUTOMATICALLY SILENCES UNKNOWN NUMBERS. THIS RN EDUCATED FAMILY AGAIN AND GAVE AN UPDATE OF PT'S STABILITY WITH PRECEDEX. PT FAMILY LESS CONCERNED NOW AND IS OK FOR NIMBEX TO BE OFF. PT SKIN FELT COOL TO TOUCH AND AXILLARY TEMPERATURES WERE NOT READING APPROPRIATELY. TEMP PROBE LUI PLACE. PT LOW GRADE FEBRILE AT THIS TIME. PRN TYLENOL GIVEN. WILL GIVE REPORT TO ONCOMING SHIFT.
[2020-12-10] VITALS (43 sets, daily range): BP systolic 95–179; BP diastolic 47–99
--- NOTE | 2020-12-10 00:24 | NUR ---
12/09/20 2200 TUBE FEEDING ON HOLD 12/09/20 2330 PT PRONED
[2020-12-10 05:16] LABS: PLATELET COUNT* 129 thou/uL (150-400); WBC 12.3 thou/uL (4.0-11.0)
[2020-12-10 05:19] LABS: HEMATOCRIT 30.3 % (37.0-47.0); HEMOGLOBIN 9.9 gm/dL (12.0-15.0); MCH 24.7 pg (26.0-34.0); MCHC 32.8 g/dL (28.0-37.0); MCV 75.4 fL (80.0-100.0); NUCLEATED RBCS 0 /100WBC; RBC 4.01 mil/uL (4.20-5.00); RDW-CV 17.3 % (10.5-14.5)
[2020-12-10 05:33] LABS: ALBUMIN 3.3 g/dL (3.4-5.0); CALCIUM 8.3 mg/dL (8.5-10.1); CREATININE 0.6 mg/dL (0.6-1.3); MAGNESIUM 2.5 mg/dL (1.8-2.4); PHOSPHORUS* 2.8 mg/dL (2.5-4.9); POTASSIUM 3.8 mmol/L (3.5-5.1); TOTAL BILIRUBIN 0.8 mg/dL (<0.1-1.0); TOTAL PROTEIN 6.2 g/dL (6.4-8.2)
[2020-12-10 05:57] LABS: BE 16.6 mmol/L (-2 to +3); PCO2 45.2 mmHg (35.0-45.0); PO2 89.3 mmHg (75.0-100.0)
[2020-12-10 07:40] LABS: ABSOLUTE LYMPHOCYTES 0.2 thou/uL (0.8-5.3); ABSOLUTE NEUTROPHILS 11.1 thou/uL (1.6-8.1); PLATELET ESTIMATE ADEQUATE
--- NOTE | 2020-12-10 16:28 | NUR ---
VSS WITH EXCEPTION OF ELEVATED CORE TEMP, TMAX 102.0F. TREATED WITH TYLENOL, COLD WASHCLOTHS, REMOVAL OF SHEETS/BLANKETS, AND RN HAD THE ROOM TEMPERATURE DROPPED. PT REMAINS FEBRILE. PT WAS PRONE AT START OF SHIFT, PT WAS SUPINE AT 1030. SEDATION WAS SLIGHTLY INCREASED FOR PATIENT COMFORT. PLEASE SEE EMAR. PT RECIEVED A BATH TODAY. FAMILY UPDATED OVER THE PHONE.
[2020-12-10 21:47] LABS: BE 10.8 mmol/L (-2 to +3); PCO2 49.3 mmHg (35.0-45.0)
[2020-12-10 21:50] LABS: PO2 53.8 mmHg (75.0-100.0)
[2020-12-11] VITALS (43 sets, daily range): BP systolic 91–182; BP diastolic 51–101
--- NOTE | 2020-12-11 02:27 | NUR ---
2039 REPORTED FROM DAY SHIFT THAT PTS TEMPERATURE ELEVATED ALL DAY. PT TEMP 102.3 SEE SEP, CALLED TO HAVE TEMPERATURE CHANGED IN ROOM, ICE PACKS AND FAN USED 2124 PT TACHYCARDIC HR 130'S, INCREASED SBP FROM 110 TO 140'S. O2 84-87% VENTILATED AT 70%. 2129 ATIVAN GIVEN, FIO2 ON VENTILATOR INCREASED TO 100%. VS IMPROVED TO WITHIN NORMAL RANGES. SEE VS CHARTED [address] CHAVEZ REGARDING ELEVATED TEMPERATURE, INCREASED O2 DEMAND, RESULTS OF ABG. ORDER TO INCREASE ACETAMINOPHEN. SEE SEP. CALL PULMONARY REF VENTILATOR ADJUSTMENT 2199 TUBE FEEDING HELD [address] PENA REGARDING ELEVATED TEMPERATURE, INCREASED 02 DEMAND AND RESULTS OF ABG AND CHEST EX OBTAINED, WAITING RESULTS. VERBAL ORDER TO INCREASE PEEP TO 10, ORDER GRULLON CULTURES. BLOOD X2 AND URINE SENT. UNABLE TO OBTAIN SPUTUM AT THIS TIME. OK TO PRONE SCHEDULED. 2299 PT PRONED
[2020-12-11 05:20] LABS: ABSOLUTE BASOPHILS 0.1 thou/uL (0.0-0.2); ABSOLUTE EOSINOPHILS 0.1 thou/uL (0.0-0.7); ABSOLUTE LYMPHOCYTES 0.3 thou/uL (0.8-5.3); ABSOLUTE MONOCYTES 0.1 thou/uL (0.0-1.2); ABSOLUTE NEUTROPHILS 15.1 thou/uL (1.6-8.1); BASOPHILS 0.5 %; EOSINOPHILS 0.6 %; HEMATOCRIT 33.4 % (37.0-47.0); HEMOGLOBIN 10.8 gm/dL (12.0-15.0); LYMPHOCYTES 1.8 %; MCH 25.2 pg (26.0-34.0); MCHC 32.5 g/dL (28.0-37.0); MCV 77.5 fL (80.0-100.0); MONOCYTES 0.5 %; MPV 8.6 fl. (7.2-11.1); NUCLEATED RBCS 0 /100WBC; PLATELET COUNT* 115 thou/uL (150-400); POLYS 96.6 %; RBC 4.31 mil/uL (4.20-5.00); RDW-CV 18.3 % (10.5-14.5); WBC 15.6 thou/uL (4.0-11.0)
[2020-12-11 05:33] LABS: ALBUMIN 3.3 g/dL (3.4-5.0); CALCIUM 8.3 mg/dL (8.5-10.1); CREATININE 0.7 mg/dL (0.6-1.3); MAGNESIUM 2.7 mg/dL (1.8-2.4); PHOSPHORUS* 4.2 mg/dL (2.5-4.9); POTASSIUM 3.6 mmol/L (3.5-5.1); TOTAL BILIRUBIN 0.9 mg/dL (<0.1-1.0); TOTAL PROTEIN 6.5 g/dL (6.4-8.2)
[2020-12-11 06:06] LABS: PCO2 43.1 mmHg (35.0-45.0); PO2 87.9 mmHg (75.0-100.0); pH 7.427 (7.340-7.450)
--- NOTE | 2020-12-11 09:22 | NUR ---
MON REFERRAL NUMBER [id number] REFERRAL MADE 12/11/2020 JUST BEFORE 0900 PER MTN, THE PT IS A CANDIDATE FOR [employer]. [facility] WILL CALL DAILY FOR UPDATES. MTN REQUESTS WE NOTIFY THEM OF NEURO CHANGES, WITHDRAWAL OF CARE, TALK OF DONATION, OR DECLINE IN PT STATUS.
--- NOTE | 2020-12-11 15:56 | NUR ---
ICU rounds: Covid positive. Supine today. On lots of sedation. Full code. Central line. MTN to complete preliminary screen today.
--- NOTE | 2020-12-11 18:49 | NUR ---
PTS TEMP IMPROVED THOUGOHUT THE SHIFT. ID EVALUATED THE PT AND STARTED 2 NEW IV ABX. PANCULTURES STILL PENDING. LACTATE IMPROVED. PT BATHED AND SUPINED AT [address] DOYLE, DO NOT PRONE THIS EVENING AND RE-EVAL TOMORROW. PY HYPERTENSIVE AT TIMES, PRESUMED ANXIETY RELATED D/T PT COUGHING AND ATTEMPTING TO OPEN HER EYES. SEDATION TITRATED ACCORDINGLY. PLEASE SEE MAR. FAMILY UPDATED. COVID PCR REDONE IN ATTEMPT TO REMOVE THE PTS ISOLATION STATUS.
[2020-12-12] VITALS (49 sets, daily range): BP systolic 86–156; BP diastolic 49–89
[2020-12-12 04:38] LABS: ABSOLUTE BASOPHILS 0.1 thou/uL (0.0-0.2); ABSOLUTE LYMPHOCYTES 0.1 thou/uL (0.8-5.3); ABSOLUTE MONOCYTES 0.2 thou/uL (0.0-1.2); ABSOLUTE NEUTROPHILS 12.7 thou/uL (1.6-8.1); HEMATOCRIT 28.7 % (37.0-47.0); HEMOGLOBIN 9.2 gm/dL (12.0-15.0); LYMPHOCYTES 1.1 %; MCH 25.1 pg (26.0-34.0); MCV 78.3 fL (80.0-100.0); MONOCYTES 1.4 %; NUCLEATED RBCS 0 /100WBC; PLATELET COUNT* 96 thou/uL (150-400); POLYS 96.5 %; RBC 3.67 mil/uL (4.20-5.00); RDW-CV 18.9 % (10.5-14.5); WBC 13.2 thou/uL (4.0-11.0)
[2020-12-12 04:50] LABS: ALBUMIN 2.7 g/dL (3.4-5.0); CALCIUM 8.2 mg/dL (8.5-10.1); CREATININE 0.5 mg/dL (0.6-1.3); MAGNESIUM 2.4 mg/dL (1.8-2.4); PHOSPHORUS* 3.4 mg/dL (2.5-4.9)
[2020-12-12 08:37] LABS: BE 5.3 mmol/L (-2 to +3); PCO2 46.1 mmHg (35.0-45.0); pH 7.435 (7.340-7.450)
[2020-12-12 08:40] LABS: PO2 57.4 mmHg (75.0-100.0)
--- NOTE | 2020-12-12 09:58 | NUR ---
ICU ROUNDS: PT REMAINS VENT AND SEDATED. PT IS OFF PRESSORS. HAS CENTRAL LINE. CARE TEAM IS WAITING TO SEE IF PT CAN COME OFF ISOLATION SO FAMILY CAN VISIT. PT IS NOT PROGRESSING TOWARDS GOALS.
--- NOTE | 2020-12-12 16:30 | NUR ---
PTS RINGS GIVEN TO ESTEE Ingram LOCKED IN HER OFFICE
[2020-12-13] VITALS (25 sets, daily range): BP systolic 90–147; BP diastolic 56–95
[2020-12-13 05:43] LABS: ABSOLUTE BASOPHILS 0.1 thou/uL (0.0-0.2); ABSOLUTE LYMPHOCYTES 0.2 thou/uL (0.8-5.3); ABSOLUTE MONOCYTES 0.4 thou/uL (0.0-1.2); ABSOLUTE NEUTROPHILS 15.7 thou/uL (1.6-8.1); BASOPHILS 0.9 %; HEMATOCRIT 30.7 % (37.0-47.0); HEMOGLOBIN 9.8 gm/dL (12.0-15.0); MCH 25.6 pg (26.0-34.0); MCHC 32.1 g/dL (28.0-37.0); MCV 79.7 fL (80.0-100.0); MONOCYTES 2.4 %; MPV 9.1 fl. (7.2-11.1); NUCLEATED RBCS 0 /100WBC; PLATELET COUNT* 110 thou/uL (150-400); POLYS 95.7 %; RBC 3.85 mil/uL (4.20-5.00); WBC 16.4 thou/uL (4.0-11.0)
[2020-12-13 05:50] LABS: CALCIUM 8.6 mg/dL (8.5-10.1); CREATININE 0.6 mg/dL (0.6-1.3); MAGNESIUM 2.4 mg/dL (1.8-2.4); POTASSIUM 3.8 mmol/L (3.5-5.1)
--- NOTE | 2020-12-13 12:30 | NUR ---
ICU rounds: Covid positive. Doing about the same. WBC elevated. Continues to be tachy at times. On lots of sedation. Remains on vent. Fluid in lungs.
[2020-12-13 13:01] LABS: BE 4.5 mmol/L (-2 to +3); PCO2 VENOUS 59.3 mmHg (41.0-51.0); PO2 VENOUS 45.3 mmHg (35.0-45.0)
[2020-12-13 15:51] LABS: CALCIUM 8.6 mg/dL (8.5-10.1); CREATININE 0.7 mg/dL (0.6-1.3); POTASSIUM 3.7 mmol/L (3.5-5.1)
--- NOTE | 2020-12-13 18:53 | NUR ---
ALL ASSESSMENTS COMPLETED CHARTED. PATIENT STILL SEDATED AN INTUBATED. RESTARTED PROPOFOL ON MY SHIFT DUE TO NOT MAINTAINING O2 STAT AND ELEVATED HEART RATE. PATIENT MUCH BETTER THROUGH REST OF SHIFT. STILL NO BM.
[2020-12-14] VITALS (25 sets, daily range): BP systolic 90–180; BP diastolic 52–105
[2020-12-14 03:53] LABS: ABSOLUTE LYMPHOCYTES 0.1 thou/uL (0.8-5.3); ABSOLUTE MONOCYTES 0.3 thou/uL (0.0-1.2); ABSOLUTE NEUTROPHILS 11.5 thou/uL (1.6-8.1); HEMATOCRIT 26.8 % (37.0-47.0); HEMOGLOBIN 8.6 gm/dL (12.0-15.0); LYMPHOCYTES 1.2 %; MCH 25.9 pg (26.0-34.0); MCHC 32.3 g/dL (28.0-37.0); MCV 80.3 fL (80.0-100.0); MONOCYTES 2.8 %; MPV 8.8 fl. (7.2-11.1); NUCLEATED RBCS 0 /100WBC; PLATELET COUNT* 97 thou/uL (150-400); RBC 3.33 mil/uL (4.20-5.00); RDW-CV 21.5 % (10.5-14.5)
[2020-12-14 04:26] LABS: PHOSPHORUS* 3.1 mg/dL (2.5-4.9)
[2020-12-14 04:27] LABS: ALBUMIN 2.4 g/dL (3.4-5.0); CALCIUM 8.3 mg/dL (8.5-10.1); CREATININE 0.5 mg/dL (0.6-1.3); MAGNESIUM 2.3 mg/dL (1.8-2.4); POTASSIUM 4.3 mmol/L (3.5-5.1); TOTAL BILIRUBIN 0.7 mg/dL (<0.1-1.0); TOTAL PROTEIN 6.1 g/dL (6.4-8.2)
--- NOTE | 2020-12-14 10:14 | NUR ---
ICU Rounds: Vent FiO2 70% and Peep of 10. Covid +. At this time, the patient is not stable to wean or trach. O2 needs to high. Possible LTAC placement in the future.
[2020-12-14 12:35] LABS: BE 9.9 mmol/L (-2 to +3); PCO2 VENOUS 66.1 mmHg (41.0-51.0); PO2 VENOUS 30.2 mmHg (35.0-45.0)
[2020-12-14 14:42] LABS: CALCIUM 8.8 mg/dL (8.5-10.1); CREATININE 0.5 mg/dL (0.6-1.3); POTASSIUM 4.5 mmol/L (3.5-5.1)
--- NOTE | 2020-12-14 19:24 | NUR ---
ASSUMED CARE OF PT 0700. ASSESSMENTS COMPLETED, SEE CHART FOR DETAILS. VITALS CHARTED. DILAUDID, PRECEDEX, PROPOFOL, AND VERSED GTTS PER ORDERS. TF PER ORDERS. LUI PER ORDERS. VENT SETTINGS CHARTED. PT VITALS REMAIN LABILE IF SEDATION WEARS OFF. HR INCREASES TO 130'S AND HIGHER OFF SEDATION. SEDATION VACATION THIS AM: PT APPEARED TO FOLLOW THE COMMAND OF "MOVE YOUR LEG" X3. PHYSICIANS AND NURSING AWARE. WILL REASSESS WITH NEXT SEDATION VACATION TO DETERMINE ACCURACY OF THIS. SWELLING AROUND NECK, NOTIFIED DR MAN, WILL MONITOR FOR WORSENING SIGNS OF BAROTRAUMA. BUTTOCKS NOTED TO HAVE BLANCHABLE PINK AREAS, LARGE COCCYX MEPILEX PLACED, Q2 HR TURNS. PT WILL CONTINUE TO BE MONITORED CLOSELY.
[2020-12-15] VITALS (40 sets, daily range): BP systolic 85–175; BP diastolic 50–94
[2020-12-15 03:43] LABS: HEMATOCRIT 24.5 % (37.0-47.0); HEMOGLOBIN 7.9 gm/dL (12.0-15.0); MCH 26.4 pg (26.0-34.0); MCHC 32.3 g/dL (28.0-37.0); MCV 81.7 fL (80.0-100.0); MPV 8.6 fl. (7.2-11.1); NUCLEATED RBCS 0 /100WBC; PLATELET COUNT* 87 thou/uL (150-400); RDW-CV 22.3 % (10.5-14.5); WBC 7.8 thou/uL (4.0-11.0)
[2020-12-15 04:02] LABS: ALBUMIN 2.6 g/dL (3.4-5.0); CALCIUM 8.4 mg/dL (8.5-10.1); CREATININE 0.5 mg/dL (0.6-1.3); MAGNESIUM 2.5 mg/dL (1.8-2.4); POTASSIUM 4.1 mmol/L (3.5-5.1); TOTAL BILIRUBIN 0.5 mg/dL (<0.1-1.0); TOTAL PROTEIN 6.2 g/dL (6.4-8.2)
[2020-12-15 04:13] LABS: PREALBUMIN 22.6 mg/dL (18.0-35.7)
[2020-12-15 06:20] LABS: ABSOLUTE LYMPHOCYTES 0.5 thou/uL (0.8-5.3); ABSOLUTE MONOCYTES 0.3 thou/uL (0.0-1.2); ABSOLUTE NEUTROPHILS 6.9 thou/uL (1.6-8.1)
[2020-12-15 06:21] LABS: ANISOCYTOSIS 1+; HYPOCHROMASIA 1+; PLATELET ESTIMATE DECREASED; POIKILOCYTOSIS 1+; POLYCHROMASIA Occasional
--- NOTE | 2020-12-15 14:31 | NUR ---
ICU Rounds: Potential trach/peg 12/19. Vent FiO2 60% and Peep 10. Patient will need LTAC placement post trach and peg. Will discuss options with family. Family agreeable with trach/peg if needed. Will continue to monitor.
[2020-12-15 15:25] LABS: BE 5.5 mmol/L (-2 to +3); PCO2 VENOUS 66.1 mmHg (41.0-51.0); PO2 VENOUS 56.8 mmHg (35.0-45.0)
[2020-12-15 15:43] LABS: CALCIUM 7.2 mg/dL (8.5-10.1); CREATININE 0.5 mg/dL (0.6-1.3); POTASSIUM 3.7 mmol/L (3.5-5.1)
[2020-12-15 17:10] LABS: HEMATOCRIT 25.6 % (37.0-47.0); HEMOGLOBIN 8.3 gm/dL (12.0-15.0); MCH 26.4 pg (26.0-34.0); MCHC 32.4 g/dL (28.0-37.0); MCV 81.5 fL (80.0-100.0); MPV 8.7 fl. (7.2-11.1); NUCLEATED RBCS 0 /100WBC; PLATELET COUNT* 102 thou/uL (150-400); RBC 3.14 mil/uL (4.20-5.00); RDW-CV 21.6 % (10.5-14.5); WBC 6.4 thou/uL (4.0-11.0)
[2020-12-15 17:18] LABS: CALCIUM 8.6 mg/dL (8.5-10.1); CREATININE 0.5 mg/dL (0.6-1.3); MAGNESIUM 2.4 mg/dL (1.8-2.4); POTASSIUM 4.1 mmol/L (3.5-5.1)
[2020-12-15 17:36] LABS: ABSOLUTE LYMPHOCYTES 0.3 thou/uL (0.8-5.3); ABSOLUTE MONOCYTES 0.3 thou/uL (0.0-1.2); ABSOLUTE NEUTROPHILS 5.8 thou/uL (1.6-8.1); PLATELET ESTIMATE DECREASED
[2020-12-15 17:37] LABS: ANISOCYTOSIS 2+; MICROCYTES 2+
[2020-12-15 17:38] LABS: POLYCHROMASIA Occasional
[2020-12-15 17:39] LABS: POIKILOCYTOSIS Occasional
--- NOTE | 2020-12-15 18:11 | NUR ---
VENT SUPPORT CONTD, FIO2 UPTO 80%, SEDATED WITH RASS -3. VSS. TOLERATING TUBE FEEDS 2 SYD AT GOAL. Q2 TURNS AND ORAL CARE GIVEN. MOM UPDATED.
[2020-12-16] VITALS (48 sets, daily range): BP systolic 86–197; BP diastolic 53–118
[2020-12-16 06:05] LABS: ABSOLUTE LYMPHOCYTES 0.1 thou/uL (0.8-5.3); ABSOLUTE MONOCYTES 0.2 thou/uL (0.0-1.2); ABSOLUTE NEUTROPHILS 5.7 thou/uL (1.6-8.1); BASOPHILS 0.6 %; EOSINOPHILS 0.1 %; HEMATOCRIT 25.3 % (37.0-47.0); HEMOGLOBIN 8.3 gm/dL (12.0-15.0); LYMPHOCYTES 1.5 %; MCH 26.5 pg (26.0-34.0); MCHC 32.7 g/dL (28.0-37.0); MPV 8.3 fl. (7.2-11.1); NUCLEATED RBCS 0 /100WBC; PLATELET COUNT* 100 thou/uL (150-400); POLYS 94.8 %; RBC 3.12 mil/uL (4.20-5.00); RDW-CV 22.3 % (10.5-14.5)
[2020-12-16 06:23] LABS: PREALBUMIN 23.8 mg/dL (18.0-35.7)
[2020-12-16 06:29] LABS: ALBUMIN 2.4 g/dL (3.4-5.0); CALCIUM 8.4 mg/dL (8.5-10.1); CREATININE 0.4 mg/dL (0.6-1.3); TOTAL BILIRUBIN 0.5 mg/dL (<0.1-1.0); TOTAL PROTEIN 6.4 g/dL (6.4-8.2)
--- NOTE | 2020-12-16 06:47 | NUR ---
ASSESSMENTS CHARTED. PATIENT REMAINS INTUBATED ON VENTILATOR AND IN COVID ISOLATION. NO BM THIS SHIFT. NO ACUTE CHANGES OR SIGNIFICANT EVENTS OVERNIGHT. VSS.
[2020-12-16 07:21] LABS: PHOSPHORUS* 3.9 mg/dL (2.5-4.9)
[2020-12-16 08:49] LABS: BE 12.9 mmol/L (-2 to +3); PCO2 VENOUS 61.1 mmHg (41.0-51.0); PO2 VENOUS 49.8 mmHg (35.0-45.0)
--- NOTE | 2020-12-16 17:33 | NUR ---
PT DIDN'T TOLERATE TITRATING DOWN THE SEDATION, BECAME HYPERTENSIVE AND TACHYCARDIC UPTO 130s, HENCE SEDATION CONTD BEFORE. TOLRATING TUBE FEEDS, NO BM YET. FAMILY UPDATED.
[2020-12-17] VITALS (50 sets, daily range): BP systolic 80–195; BP diastolic 48–104
[2020-12-17 04:01] LABS: ABSOLUTE BASOPHILS 0.1 thou/uL (0.0-0.2); ABSOLUTE LYMPHOCYTES 0.1 thou/uL (0.8-5.3); ABSOLUTE MONOCYTES 0.2 thou/uL (0.0-1.2); ABSOLUTE NEUTROPHILS 5.9 thou/uL (1.6-8.1); BASOPHILS 1.4 %; EOSINOPHILS 0.2 %; HEMATOCRIT 25.7 % (37.0-47.0); HEMOGLOBIN 8.4 gm/dL (12.0-15.0); LYMPHOCYTES 1.5 %; MCH 26.7 pg (26.0-34.0); MCHC 32.7 g/dL (28.0-37.0); MCV 81.6 fL (80.0-100.0); MONOCYTES 2.7 %; NUCLEATED RBCS 0 /100WBC; PLATELET COUNT* 105 thou/uL (150-400); POLYS 94.2 %; RBC 3.15 mil/uL (4.20-5.00); RDW-CV 22.2 % (10.5-14.5); WBC 6.2 thou/uL (4.0-11.0)
[2020-12-17 04:27] LABS: ALBUMIN 2.3 g/dL (3.4-5.0); CALCIUM 8.5 mg/dL (8.5-10.1); CREATININE 0.4 mg/dL (0.6-1.3); POTASSIUM 4.3 mmol/L (3.5-5.1); TOTAL BILIRUBIN 0.4 mg/dL (<0.1-1.0); TOTAL PROTEIN 6.6 g/dL (6.4-8.2)
[2020-12-17 05:45] LABS: BE 9.2 mmol/L (-2 to +3); PO2 88.6 mmHg (75.0-100.0); pH 7.393 (7.340-7.450)
[2020-12-17 05:47] LABS: PCO2 59.8 mmHg (35.0-45.0)
--- NOTE | 2020-12-17 07:10 | NUR ---
ASSESSMENTS CHARTED. TUBE FEEDING HELD THIS AM FOR HIGH RESDIUALS, OG TUBE REPOSITIONED. PATIENT HAD BLEEDING FROM ORAL CAVITY THIS AM, SUCTIONED BACK OF THROAT AND PULLED A FEW MEDIUM SIZED CLOTS FROM THE BACK OF THE THROAT. HEMODYNAMICALLY STABLE THROUGH EVENT. DR PENA NOTIFIED. ABG RESULTS CRITICAL THIS AM, PULMONARY AWARE. NO NEW ORDERS. ATTEMPTED SEDATION VACATION THIS SHIFT. PATIENT DID NOT TOLERATE. TACHYCARDIC IN 130'S AND BREATHING OVER 30-35/MIN. SEDATION RETURNED TO ORIGINAL DOSAGES.
--- NOTE | 2020-12-17 10:39 | NUR ---
ENHANCED PRECAUTIONS DC'd PER ORDERS, OKAY BY PULMONARY AND INFECTION CONTROL TOO. FAMILY NOTIFIED.
--- NOTE | 2020-12-17 18:43 | NUR ---
VENT SETTINGS AND SEDATION UNCHANGED THROUGHOUT THE DAY. VSS. RESTARTED TUBE FEEDS, CURRENTLY AT 25 MLS/HR. FAMILY MEMBERS VISITED.
[2020-12-18] VITALS (129 sets, daily range): BP systolic 80–150; BP diastolic 48–101
[2020-12-18 04:07] LABS: ABSOLUTE BASOPHILS 0.1 thou/uL (0.0-0.2); ABSOLUTE LYMPHOCYTES 0.1 thou/uL (0.8-5.3); ABSOLUTE MONOCYTES 0.2 thou/uL (0.0-1.2); ABSOLUTE NEUTROPHILS 6.4 thou/uL (1.6-8.1); BASOPHILS 0.8 %; EOSINOPHILS 0.1 %; HEMATOCRIT 26.7 % (37.0-47.0); HEMOGLOBIN 8.8 gm/dL (12.0-15.0); LYMPHOCYTES 1.5 %; MCH 26.6 pg (26.0-34.0); MCHC 32.9 g/dL (28.0-37.0); MCV 80.8 fL (80.0-100.0); MONOCYTES 2.4 %; NUCLEATED RBCS 0 /100WBC; PLATELET COUNT* 124 thou/uL (150-400); POLYS 95.2 %; RBC 3.31 mil/uL (4.20-5.00); RDW-CV 23.7 % (10.5-14.5); WBC 6.7 thou/uL (4.0-11.0)
[2020-12-18 04:22] LABS: PREALBUMIN 20.6 mg/dL (18.0-35.7)
[2020-12-18 04:55] LABS: ALBUMIN 2.2 g/dL (3.4-5.0); ALKALINE PHOSPHATASE 85 U/L (46-116); ANION GAP < 0 mmol/L (7-16); BUN 20 mg/dL (7-18); CALCIUM 8.4 mg/dL (8.5-10.1); CHLORIDE 95 mmol/L (98-107); CO2 41 mmol/L (21-32); CREATININE 0.4 mg/dL (0.6-1.3); GLUCOSE 142 mg/dL (70-99); POTASSIUM 3.8 mmol/L (3.5-5.1); SGOT 47 U/L (15-37); SGPT 112 U/L (30-65); SODIUM 135 mmol/L (136-145); TOTAL BILIRUBIN 0.4 mg/dL (<0.1-1.0); TOTAL PROTEIN 6.7 g/dL (6.4-8.2)
--- NOTE | 2020-12-18 07:08 | NUR ---
EARLY IN THE SHIFT, PATIENT BECAME HYPOTENSIVE AND SUSTAINED 80'S/50'S, MAP <65. ATTEMPTED TO TITRATE DOWN SEDATION BEFORE STARTING PRESSORS. PATIENT DID NOT TOLERATE THE DECREASE IN SEDATION. HR INCREASED >130, BP 190'S/100'S, RR 35-40 AND ASYNCHRONOUS WITH THE VENT. DR PENA AWARE OF THE PATIENT'S CONDITION AT THE TIME OF THE EVENT, LOPRESSOR ADMINISTERED PER ORDERS. MEDICATION WAS EFFECTIVE FOR A SHORT TIME UNTIL HR AND BP REBOUNDED AND INCREASED AGAIN. DURING THIS TIME AROUND 0000 EKG CHANGES WERE NOTED WITH INCREASED ST DEPRESSION, EKG AND TROPONIN OBTAINED. NEGATIVE TROPONIN AND EKG RESULTS SHARED WITH DR. DAVISON. NO ORDERS RECIEVED ON ABNORMAL EKG. ATTEMPTED TO REACH FAMILY OVERNIGHT TO DISCUSS CHANGES IN THE PATIENT'S CONDITION. FAMILY WOULD NO ANSWER THE PHONE, MESSAGE LEFT FOR THEM TO CALL BACK AT THE ICU. FIO2 REQUIREMENTS INCREASED OVERNIGHT UP TO 80%. TITRATED BACK DOWN TO 70% THIS AM AND PATIENT TOLERATED WELL. SEDATION RETURNED TO ORIGINAL VALUES.
[2020-12-18 09:45] LABS: BE 12.7 mmol/L (-2 to +3); PO2 74.4 mmHg (75.0-100.0); pH 7.396 (7.340-7.450)
[2020-12-18 09:46] LABS: PCO2 66.2 mmHg (35.0-45.0)
--- NOTE | 2020-12-18 18:49 | NUR ---
ANDREA STARTED AT 1700 FOR LOW BP, CURRENTLY AT 25 MCG/MIN. SEDATION AND VENT SETTINGS UNCHANGED THROUGHOUT THE DAY EXCEPT FOR FIO2 WHICH IS DOWN TO 65%. PT TO BE MNPO FOR POSSIBLE TRACH AND PEG TOMM. PARTIAL BED BATH GIVEN.
[2020-12-19] VITALS (142 sets, daily range): BP systolic 63–131; BP diastolic 23–81
[2020-12-19 03:33] LABS: BE 13.1 mmol/L (-2 to +3); PO2 61.5 mmHg (75.0-100.0); pH 7.331 (7.340-7.450)
[2020-12-19 03:34] LABS: PCO2 82.7 mmHg (35.0-45.0)
[2020-12-19 03:51] LABS: ABSOLUTE LYMPHOCYTES 0.6 thou/uL (0.8-5.3); ABSOLUTE MONOCYTES 0.2 thou/uL (0.0-1.2); ABSOLUTE NEUTROPHILS 7.9 thou/uL (1.6-8.1); BASOPHILS 0.4 %; EOSINOPHILS 0.1 %; HEMOGLOBIN 8.6 gm/dL (12.0-15.0); MCH 26.7 pg (26.0-34.0); MONOCYTES 2.4 %; MPV 7.5 fl. (7.2-11.1); NUCLEATED RBCS 0 /100WBC; PLATELET COUNT* 142 thou/uL (150-400); POLYS 90.1 %; RBC 3.21 mil/uL (4.20-5.00); RDW-CV 23.5 % (10.5-14.5); WBC 8.8 thou/uL (4.0-11.0)
[2020-12-19 04:04] LABS: ALKALINE PHOSPHATASE 85 U/L (46-116); ANION GAP < 0 mmol/L (7-16); BUN 18 mg/dL (7-18); CALCIUM 8.4 mg/dL (8.5-10.1); CHLORIDE 99 mmol/L (98-107); CO2 44 mmol/L (21-32); CREATININE 0.5 mg/dL (0.6-1.3); GLUCOSE 152 mg/dL (70-99); POTASSIUM 4.2 mmol/L (3.5-5.1); SGOT 53 U/L (15-37); SGPT 106 U/L (30-65); SODIUM 138 mmol/L (136-145); TOTAL BILIRUBIN 0.4 mg/dL (<0.1-1.0); TOTAL PROTEIN 6.6 g/dL (6.4-8.2)
[2020-12-19 04:16] LABS: PREALBUMIN 17.9 mg/dL (18.0-35.7)
--- NOTE | 2020-12-19 07:44 | NUR ---
ASSESSMENTS CHARTED. PATIENT REQUIRED INCREASE IN VASOPRESSOR SUPPORT OVERNIGHT, SEE TITRATION RECORD FOR DETAILS. MORNING ABG RETURNED WITH MULTIPLE CRITICALS. SPOKE WITH SURGERY AND PULMONARY. ORDERS RECIEVED. DR. FLORES ROUNDED ON PATIENT THIS AM, DR. FLORES EXPRESSED THAT THE PATIENT WOULD NOT BE GOING TO THE OR AT THIS TIME FOR TRACH AND PEG TODAY. PATIENT IS TOO UNSTABLE AT THIS TIME. TUBE FEEDING RESTARTED THIS AM AFTER BEING NPO SINCE MIDNIGHT.
--- NOTE | 2020-12-19 12:00 | EKG ---
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 Webber : 1975 Requested By: [place] Order Number: [id number] Reading MD: Gurjit Gruber Measurements Intervals [place] Rate: 119 P: 60 AR: 43 QRS: 35 QRSD: 74 T: -24 QT: 303 QTc: 427 Interpretive Statements Sinus tachycardia Right atrial enlargement Repol abnrm, severe global ischemia (LM/MVD) Compared to ECG 12/06/2020 13:44:54 Possible ischemia now present Sinus rhythm no longer present Electronically Signed On 12-19-2020 12:00:26 CDT by Gurjit Gruber [email or web address] <ELECTRONICALLY SIGNED> By: Gurjit Gruber MD, FACC 12/19/20 1200 Gurjit Gruber MD, FAC /EPI
--- NOTE | 2020-12-19 13:46 | NUR ---
[facility] ARRANGED TRANSPORTATION FOR PT TO TRANSFER TO [facility]. [facility] RE-FAX PT CLINICALS TO [phone], ASKED BY MARCEL PETTIT/[employer] THE INITIAL COPY WASNT RECEIVED BY TRANSFER TEAM. [facility] SPK WITH BONNIE Palencia, WHO CONFIRMED SUPERINTENDENT RENTING MANAGING TIME AT 1500. PT BEDSIDE RN PROVIDED NUMBER TO CALL REPORT TO EUGENE JOSEPH, AT REPLACED BY [facility]. ICU BED 24. [phone]. [facility] SPK WITH PT'S MOTHER AND EX-/ROOMATE WHO WERE AT BEDSIDE TO EXPLAIN TRANSFER PROCESS.
--- NOTE | 2020-12-19 20:25 | NUR ---
ASSUMED CARES AT 0700. PATIENT ON VENT AND SEDATED. 1000 DR DAVISON AT BEDSIDE AND STATED THAT SHE WANTED TO HAVE THE PATIENT TRANSFERRED OUT TO [facility] OR SOMEWHERE THAT COULD PROVIDE ECMO. PATIENT BECAME UNSTABLE AT APPROX 1015 WITH SATS DECREASING, HEART RATE INCREASING, BLOOD PRESSURE DECREASING. THIS NURSE WANTED TO BE SURE THAT THE PATIENT WAS STABLE ENOUGH TO MAKE THE TRANSFER. PATIENT CURRENTLY SEDATED ON 4 GTTS AND ANDREA AND LEVOPHED HAD TO BE STARTED WELL. PATIENT WAS STABLE AND DOING WELL ENOUGH FOR TRANSPORT AT APPROX 1300. CASE MANAGEMENT UPDATED AND AMBULANCE CALLED. EMS ARRIVED TO TRANSFER PATIENT AT 1600. THIS NURSE WAS ASKED TO ASSIST EMS WITH THE TRANSFER TO [facility] DUE TO ALL THE DRIPS THE PATIENT WAS ON AND HER INSTABILITY. RN THEN WENT WITH PATIENT DURING TRANSFER TO [facility]. DOCUMENTAION OF TRANSPORT IS IN THE PATIENT'S CHART. NO FURTHER CONCERNS AT THIS TIME. PATIENT'S FAMILY UPDATED.
== END 2020-12-19 16:45 | disposition short-term general hospital (02) | DRG 870 ==
LOC: M.ERS 14:05 → M.TBA-ER 14:23 → M.ICU 14:23 → M.TBA-ER 17:07 → M.ICU 21:23
PROVIDERS: Family Medicine; Internal Medicine; Internal Medicine Critical Care Medicine; Internal Medicine Hematology & Oncology; Pediatrics; Registered Nurse; Surgery; ADMIT Family Medicine; ATTEND Family Medicine
DX: A41.9 Sepsis, unspecified organism (principal); U07.1 COVID-19; J96.01 Acute respiratory failure with hypoxia; J12.82 Pneumonia due to coronavirus disease 2019; T79.7XXA Traumatic subcutaneous emphysema, initial encounter; J93.83 Other pneumothorax; I82.451 Acute embolism and thrombosis of right peroneal vein; I82.441 Acute embolism and thrombosis of right tibial vein; K21.9 Gastro-esophageal reflux disease without esophagitis; E66.9 Obesity, unspecified; E87.70 Fluid overload, unspecified; F32.9 Major depressive disorder, single episode, unspecified; F41.9 Anxiety disorder, unspecified; F19.10 Other psychoactive substance abuse, uncomplicated; F10.10 Alcohol abuse, uncomplicated; D69.6 Thrombocytopenia, unspecified; D64.9 Anemia, unspecified; K59.03 Drug induced constipation; T40.605A Adverse effect of unspecified narcotics, initial encounter; X58.XXXA Exposure to other specified factors, initial encounter; Y93.89 Activity, other specified; Y99.8 Other external cause status; Y92.89 Other specified places as the place of occurrence of the external cause; Z68.29 Body mass index [BMI] 29.0-29.9, adult; Z88.8 Allergy status to other drugs, medicaments and biological substances; Z79.01 Long term (current) use of anticoagulants; Z79.899 Other long term (current) drug therapy